=== PATIENT | male | born 1980 | race Caucasian/White ===

== ENCOUNTER → 2017-12-21 | Outpatient (CLI) | payer MEDICAID ==
--- NOTE | 2017-12-21 11:50 | XR ---
Right ankle HISTORY: Right ankle pain 3 views of the right ankle No significant soft tissue swelling. Bone mineralization, joint spaces and alignment are maintained. No fracture or dislocation. IMPRESSION: No evident bone abnormality, ankle MRI may be of benefit.
== END | disposition home or self-care (01) ==
LOC: RADXRMAIN 09:39
PROVIDERS: ATTEND Physician Assistant
DX: M25.571 Pain in right ankle and joints of right foot (principal)

== ENCOUNTER 2020-05-13 08:21 | Observation (INO) | payer MEDICAID, OTHER ==
[2020-05-13] MEDS ORDERED: SODIUM CHLORIDE 0.9% 500 ML 500 ML IV STA (08:37)
[2020-05-13] MEDS ORDERED: SODIUM CHLORIDE 0.9% 1,000 ML IV STA (08:37)
[2020-05-13] MEDS ORDERED: KETOROLAC 15 MG/ML 1 ML VIAL IVP STA (08:37)
--- NOTE | 2020-05-13 08:42 | ED ---
Abdominal Pain HPI - General Chief Complaint: Abdominal Pain Stated Complaint: Abd pain Time Seen by Provider: 05/13/20 08:27 Source: patient, RN notes reviewed Mode of arrival: ambulatory Limitations: no limitations - History of Present Illness Initial Comments: This is a 39-year-old male with a benign past medical history positive family history gallbladder disease who states he had the onset yesterday of lower abdominal pain which gets worse with movements and bumps in the road when he drives his car. It was this morning initially 9/10 now it's 6/10 severity he had nausea vomiting times to no diarrhea no constipation. He's had hot and cold flashes. He states is more localized in the right lower quadrant area. No other complaints modifying factors no prior surgeries. MD Complaint: abdominal pain - Related Data Home Medications Medication Instructions Recorded Confirmed No Known Home Medications 05/13/20 05/13/20 Allergies Allergy/AdvReac Type Severity Reaction Status Date / Time No Known Allergies Allergy Verified 05/13/20 09:19 Review of Systems ROS Statement: Those systems with pertinent positive or pertinent negative responses have been documented in the HPI. ROS Other: All systems not noted in ROS Statement are negative. Past Medical History Past Medical History: No Reported History History of Any Multi-Drug Resistant Organisms: None Reported Past Surgical History: No Surgical Hx Reported Past Psychological History: No Psychological Hx Reported Smoking Status: Never smoker Past Alcohol Use History: None Reported Past Drug Use History: None Reported General Exam - General Exam Comments Initial Comments: This is a well-developed well-nourished awake alert oriented 3 male Limitations: no limitations General appearance: alert, in no apparent distress Head exam: Present: atraumatic, normocephalic, normal inspection Eye exam: Present: normal appearance, PERRL, EOMI. Absent: scleral icterus, conjunctival injection, periorbital swelling ENT exam: Present: normal exam, mucous membranes moist Neck exam: Present: normal inspection. Absent: tenderness, meningismus, lymphadenopathy Respiratory exam: Present: normal lung sounds bilaterally. Absent: respiratory distress, wheezes, rales, rhonchi, stridor Cardiovascular Exam: Present: regular rate, normal rhythm, normal heart sounds. Absent: systolic murmur, diastolic murmur, rubs, gallop, clicks GI/Abdominal exam: Present: soft, tenderness (Is palpation over McBurney's point), normal bowel sounds. Absent: distended, guarding, rebound, rigid Rectal exam: Present: deferred Extremities exam: Present: normal inspection, full ROM, normal capillary refill. Absent: tenderness, pedal edema, joint swelling, calf tenderness Back exam: Present: normal inspection Neurological exam: Present: alert, oriented X3, CN II-XII intact Psychiatric exam: Present: normal affect, normal mood Skin exam: Present: warm, dry, intact, normal color. Absent: rash Course Vital Signs 05/13/20 08:24 Temperature 97.8 F Pulse Rate 93 Respiratory 16 Rate Blood Pressure 151/84 O2 Sat by Pulse 99 Oximetry Medical Decision Making - Medical Decision Making I did discuss findings with the patient and with Dr. Joseph who is nondistressed surgical call patient will be admitted place an IV antibiotics and surgery to be done this afternoon. - Lab Data Result diagrams: 05/13/20 08:43 05/13/20 08:43 Lab Results 05/13/20 05/13/20 05/13/20 Range/Units 08:43 08:43 08:43 WBC 14.8 H (3.8-10.6) k/uL RBC 5.14 (4.30-5.90) m/uL Hgb 14.9 (13.0-17.5) gm/dL Hct 45.3 (39.0-53.0) % MCV 88.1 (80.0-100.0) fL MCH 28.9 (25.0-35.0) pg MCHC 32.8 (31.0-37.0) g/dL RDW 13.4 (11.5-15.5) % Plt Count 228 (150-450) k/uL MPV 9.0 Neutrophils % 85 % Lymphocytes % 10 % Monocytes % 3 % Eosinophils % 1 % Basophils % 0 % Neutrophils # 12.6 H (1.3-7.7) k/uL Lymphocytes # 1.5 (1.0-4.8) k/uL Monocytes # 0.4 (0-1.0) k/uL Eosinophils # 0.2 (0-0.7) k/uL Basophils # 0.0 (0-0.2) k/uL Sodium 138 (137-145) mmol/L Potassium 4.3 (3.5-5.1) mmol/L Chloride 105 (98-107) mmol/L Carbon Dioxide 25 (22-30) mmol/L Anion Gap 8 mmol/L BUN 11 (9-20) mg/dL Creatinine 0.93 (0.66-1.25) mg/dL Est GFR (CKD-EPI)AfAm >90 (>60 ml/min/1.73 sqM) Est GFR (CKD-EPI)NonAf >90 (>60 ml/min/1.73 sqM) Glucose 140 H (74-99) mg/dL Calcium 9.6 (8.4-10.2) mg/dL Total Bilirubin 1.3 (0.2-1.3) mg/dL AST 36 (17-59) U/L ALT 38 (4-49) U/L Alkaline Phosphatase 72 (38-126) U/L Creatine Kinase 112 (55-170) U/L Total Protein 8.1 (6.3-8.2) g/dL Albumin 4.6 (3.5-5.0) g/dL Amylase 57 (30-110) U/L Lipase 181 (23-300) U/L Urine Color Yellow Urine Appearance Clear (Clear) Urine pH 8.0 (5.0-8.0) Ur Specific [place] 1.024 (1.001-1.035) Urine Protein Trace H (Negative) Urine Glucose (UA) Negative (Negative) Urine Ketones Negative (Negative) Urine Blood Negative (Negative) Urine Nitrite Negative (Negative) Urine Bilirubin Negative (Negative) Urine Urobilinogen <2.0 (<2.0) mg/dL Ur Leukocyte Esterase Trace H (Negative) Urine RBC <1 (0-5) /hpf Urine WBC 3 (0-5) /hpf Ur Squamous Epith Cells <1 (0-4) /hpf Urine Mucus Rare H (None) /hpf - Radiology Data Radiology results: report reviewed (Imaging reviewed evidence of acute appendicitis. Please see complete report), image reviewed Disposition Clinical Impression: Acute appendicitis, Abdominal pain Disposition: [facility] Condition: Fair Referrals: None,Stated [Primary Care Provider] - 1-2 days
[2020-05-13 09:00] LABS: Basophils % (A) 0 %; Eosinophils # (A) 0.2 k/uL (0-0.7); Eosinophils % (A) 1 %; HCT 45.3 % (39.0-53.0); HGB 14.9 gm/dL (13.0-17.5); Lymphocytes # (A) 1.5 k/uL (1.0-4.8); Lymphocytes % (A) 10 %; MCH 28.9 pg (25.0-35.0); MCHC 32.8 g/dL (31.0-37.0); MCV 88.1 fL (80.0-100.0); Monocytes # (A) 0.4 k/uL (0-1.0); Monocytes % (A) 3 %; Neutrophils # (A) 12.6 k/uL (1.3-7.7); Neutrophils % (A) 85 %; Platelet Count 228 k/uL (150-450); RBC 5.14 m/uL (4.30-5.90); RDW 13.4 % (11.5-15.5); WBC 14.8 k/uL (3.8-10.6)
[2020-05-13 09:05] LABS: Appearance,Urine Clear (Clear); Bilirubin,Urine Negative (Negative); Blood,Urine Negative (Negative); Color,Urine Yellow; Glucose,Urine (UA) Negative (Negative); Ketones,Urine Negative (Negative); Leukocyte Esterase,Urine Trace (Negative); Mucus,Urine Rare /hpf; Nitrite,Urine Negative (Negative); Protein,Urine Trace (Negative); RBC,Urine <1 /hpf (0-5); Specific Gravity,Urine 1.024 (1.001-1.035); Squamous Epithelial Cell,Urine <1 /hpf (0-4); Urobilinogen,Urine <2.0 mg/dL (<2.0); WBC,Urine 3 /hpf (0-5)
[2020-05-13 09:35] LABS: ALT 38 U/L (4-49); AST 36 U/L (17-59); African American GFR (CKD) >90 (>60 ml/min/1.73 sqM); Albumin 4.6 g/dL (3.5-5.0); Alkaline Phosphatase 72 U/L (38-126); Amylase 57 U/L (30-110); Anion Gap 8 mmol/L; Blood Urea Nitrogen 11 mg/dL (9-20); Calcium 9.6 mg/dL (8.4-10.2); Carbon Dioxide 25 mmol/L (22-30); Chloride 105 mmol/L (98-107); Creatine Kinase 112 U/L (55-170); Glucose 140 mg/dL (74-99); Lipase 181 U/L (23-300); Non-African American GFR(CKD) >90 (>60 ml/min/1.73 sqM); Potassium 4.3 mmol/L (3.5-5.1); Sodium 138 mmol/L (137-145); Total Bilirubin 1.3 mg/dL (0.2-1.3); Total Protein 8.1 g/dL (6.3-8.2)
--- NOTE | 2020-05-13 10:06 | CT ---
EXAMINATION TYPE: CT abdomen pelvis wo con DATE OF EXAM: 05/13/2020 COMPARISON: None HISTORY: 39-year-old male abdominal pain with nausea and vomiting CT DLP: 1559.4 mGycm. Automated exposure control for dose reduction was used. TECHNIQUE: Contiguous axial scanning of the abdomen and pelvis without IV contrast. Coronal and sagit filipe reconstructions performed. FINDINGS: Heart normal size without pericardial effusion. Motion artifact at the lung bases. Small hiatal hernia. Liver enlarged at 19.8 cm with low attenuation. Some fatty sparing along the gallbladder fossa. Gallbladder, adrenal glands, kidneys, and pancreas show no gross abnormal body by noncontrast CT. Spleen enlarged at 15.1 cm. No dilated small bowel, free fluid, free air. No mesenteric or retroperitoneal lymphadenopathy. Thickened and fluid distended appendix with tiny 6 mm appendicolith and mild periappendiceal fat stra nding. Mild stool within the right side of the abdomen. Redundant sigmoid colon. No other pericolonic inflam matory change. Bladder is partially distended. Small pelvic phlebolith. No abnormal fluid collection in the pelvis o r pelvic lymphadenopathy. Bones: Mild degenerative spurring of both hips. Mild facet arthropathy lower lumbar spine. IMPRESSION: 1. Exam positive for acute appendicitis with mild inflammation at this time. No abscess or free air. 2. Hepatic steatosis and hepatosplenomegaly (liver 19.8 cm and spleen 15.1 cm). 3. Small hiatal hernia.
[2020-05-13] MEDS ORDERED: PIPERACILLIN-TAZOBACTAM 3.375 GM in SODIUM CHLORIDE 0.9% 100 ML IVPB STA (10:42)
[2020-05-13] MEDS ORDERED: NALOXONE 0.4 MG/ML 1 ML VIAL IV PRN (10:43)
[2020-05-13] MEDS ORDERED: SODIUM CHLORIDE 0.9% 1,000 ML IV ONE (12:25)
[2020-05-13] MEDS ORDERED: ONDANSETRON 4 MG/2 ML VIAL ONE (12:45)
[2020-05-13] MEDS ORDERED: ceFAZolin 3 GM in SODIUM CHLORIDE 0.9% 100 ML IVPB ONE (12:52)
[2020-05-13] MEDS ORDERED: HEPARIN SODIUM,PORCINE 5,000 UNIT/ML 1 ML VIAL ONE (12:54)
--- NOTE | 2020-05-13 12:59 | P.GSHP ---
History of Present Illness H&P Date: 05/13/20 Chief Complaint: Acute appendicitis 39-year-old male began experiencing mid abdominal pain yesterday evening. This is associated with nausea and anorexia. This morning his pain was localized to the right lower quadrant. Increasing in severity. Came to the ER for evaluatio n. White blood cell count elevated at 14. CAT scan shows acute appendicitis with appendicolith. No history of similar events. - Review of Systems Comment: The patient denies any acute changes in vision or hearing, no dysphagia or odynophagia, no chest pain or shortness of breath, no dysuria or hematuria, no headache, no runny nose, no rectal bleeding or melena, no unexplained weight loss Past Medical History Past Medical History: No Reported History History of Any Multi-Drug Resistant Organisms: None Reported Past Surgical History: No Surgical Hx Reported Past Psychological History: No Psychological Hx Reported Smoking Status: Never smoker Past Alcohol Use History: None Reported Past Drug Use History: None Reported Medications and Allergies Home Medications Medication Instructions Recorded Confirmed Type No Known Home Medications 05/13/20 05/13/20 History Allergies Allergy/AdvReac Type Severity Reaction Status Date / Time No Known Allergies Allergy Verified 05/13/20 09:19 Surgical - Exam Vital Signs Temp Pulse Resp BP Pulse Ox 97.8 F 93 16 151/84 99 05/13/20 08:24 05/13/20 08:24 05/13/20 08:24 05/13/20 08:24 05/13/20 08:24 Physical exam: General: Well-developed, well-nourished HEENT: Normocephalic, sclerae nonicteric Abdomen: Right lower quadrant tenderness, nondistended Extremities: No edema Neuro: Alert and oriented Results - Labs 05/13/20 08:43 05/13/20 08:43 Abnormal Lab Results - Last 24 Hours (Table) 05/13/20 05/13/20 05/13/20 Range/Units 08:43 08:43 08:43 WBC 14.8 H (3.8-10.6) k/uL Neutrophils # 12.6 H (1.3-7.7) k/uL Glucose 140 H (74-99) mg/dL Urine Protein Trace H (Negative) Ur Leukocyte Esterase Trace H (Negative) Urine Mucus Rare H (None) /hpf Diabetes panel 05/13/20 Range/Units 08:43 Sodium 138 (137-145) mmol/L Potassium 4.3 (3.5-5.1) mmol/L Chloride 105 (98-107) mmol/L Carbon Dioxide 25 (22-30) mmol/L BUN 11 (9-20) mg/dL Creatinine 0.93 (0.66-1.25) mg/dL Glucose 140 H (74-99) mg/dL Calcium 9.6 (8.4-10.2) mg/dL AST 36 (17-59) U/L ALT 38 (4-49) U/L Alkaline Phosphatase 72 (38-126) U/L Total Protein 8.1 (6.3-8.2) g/dL Albumin 4.6 (3.5-5.0) g/dL Calcium panel 05/13/20 Range/Units 08:43 Calcium 9.6 (8.4-10.2) mg/dL Albumin 4.6 (3.5-5.0) g/dL Pituitary panel 05/13/20 Range/Units 08:43 Sodium 138 (137-145) mmol/L Potassium 4.3 (3.5-5.1) mmol/L Chloride 105 (98-107) mmol/L Carbon Dioxide 25 (22-30) mmol/L BUN 11 (9-20) mg/dL Creatinine 0.93 (0.66-1.25) mg/dL Glucose 140 H (74-99) mg/dL Calcium 9.6 (8.4-10.2) mg/dL Adrenal panel 05/13/20 Range/Units 08:43 Sodium 138 (137-145) mmol/L Potassium 4.3 (3.5-5.1) mmol/L Chloride 105 (98-107) mmol/L Carbon Dioxide 25 (22-30) mmol/L BUN 11 (9-20) mg/dL Creatinine 0.93 (0.66-1.25) mg/dL Glucose 140 H (74-99) mg/dL Calcium 9.6 (8.4-10.2) mg/dL Total Bilirubin 1.3 (0.2-1.3) mg/dL AST 36 (17-59) U/L ALT 38 (4-49) U/L Alkaline Phosphatase 72 (38-126) U/L Total Protein 8.1 (6.3-8.2) g/dL Albumin 4.6 (3.5-5.0) g/dL Assessment and Plan (1) Acute appendicitis Narrative/Plan: 39-year-old male with acute appendicitis. Will proceed with laparoscopic, possible appendectomy. Risks of bleeding, infection, abscess, conversion to an open procedure, hernia, bladder bowel and ureteral injury, anesthesia complications reviewed. He understands and wishes to proceed. Current Visit: Yes Status: Acute Code(s): K35.80 - UNSPECIFIED ACUTE APPENDICITIS SNOMED Code(s): 56013353
[2020-05-13] MEDS ORDERED: DEXAMETHASONE SOD PHOSPHATE 4 MG/ML 1 ML VIAL IV ONE (13:07)
[2020-05-13] MEDS ORDERED: SCOPOLAMINE 1.5MG/72HR PATCH TRANSDERM ONE (13:08)
[2020-05-13] MEDS ORDERED: GLYCOPYRROLATE 0.2 MG/ML 2 ML VIAL ONE (14:05)
[2020-05-13] MEDS ORDERED: NEOSTIGMINE 1 MG/ML 10 ML VIAL ONE (14:05)
[2020-05-13] MEDS ORDERED: PROPOFOL 10 MG/ML 20 ML VIAL IV ONE (14:05)
[2020-05-13] MEDS ORDERED: HYDROmorphone (PF) 1 MG/ML ONE (14:05)
[2020-05-13] MEDS ORDERED: MIDAZOLAM 2 MG/2 ML VIAL ONE (14:05)
[2020-05-13] MEDS ORDERED: LIDOCAINE 1% INJ 10MG/ML (20 ML MDV) ONE (14:05)
[2020-05-13] MEDS ORDERED: SUCCINYLCHOLINE CHLORIDE VIAL 200 MG/10 ML VIAL IV ONE (14:05)
[2020-05-13] MEDS ORDERED: fentaNYL (PF) 50 MCG/ML 2 ML AMP ONE (14:05)
[2020-05-13] MEDS ORDERED: ROCURONIUM 10 MG/ML (10 ML VIAL) IV ONE (14:05)
[2020-05-13] MEDS ORDERED: LACTATED RINGERS 1,000 ML IV ONE ×2 (14:15→15:42)
[2020-05-13] MEDS ORDERED: BUPIVACAINE (PF) 0.25% 30 ML VIAL SQ ONE (14:27)
[2020-05-13] MEDS ORDERED: HYDROmorphone 0.5 MG/0.5 ML SYRINGE IVP PRN (15:00)
[2020-05-13] MEDS ORDERED: ONDANSETRON 4 MG/2 ML VIAL IVP PRN (15:00)
[2020-05-13] MEDS ORDERED: HYDROcodone/APAP 5-325MG 1 EACH TAB PO PRN (15:00)
--- NOTE | 2020-05-13 15:07 | P.OP ---
Date of Procedure: 05/13/20 Procedure(s) Performed: PREOPERATIVE DIAGNOSIS: Acute appendicitis POSTOPERATIVE DIAGNOSIS: Same PROCEDURE: Laparoscopic appendectomy SURGEON: Jake EBL: Minimal ANESTHESIA: General COMPLICATIONS: None OPERATIVE PROCEDURE: The patient was brought and placed on the operating table in the supine position. The patient was placed under general anesthesia. The abdomen was prepped and draped in the usual sterile fashion. A small vertical infraumbilical incision was made. The fascia was retracted anteriorly with Dulzura forceps. The Veress needle was advanced into the peritoneal cavity. The saline drop test was normal. Insufflation took place to 15 mmHg. A 5 mm trocar was then placed. An additional 5 mm suprapubic trocar was placed under direct visualization as well as a 12 mm left lower quadrant trocar under direct visualization. The appendix was inspected. It was acutely inflamed. The mesoa ppendix was dissected. The base of the appendix was divided using a linear 45 mm intestinal stapler. The mesentery itself was divided using the LigaSure device. The area was then irrigated. No further purulence or bleeding was seen. The appendix was brought out of the peritoneal cavity through the left lower quadrant trocar site and Endo Catch bag. The fascia at the 12 mm site was closed using a [id number] 0 Vicryl stitch. The skin at all 3 sites was closed using 4-0 Monocryl sutures. Skin glue was then applied. DISPOSITION: Stable to recovery room
[2020-05-13] MEDS: SODIUM CHLORIDE 0.9% 1,000 ML IV SCH ×2 (18:03→18:20)
[2020-05-13] MEDS: HEPARIN SODIUM,PORCINE 5,000 UNIT/ML 1 ML VIAL SQ SCH (18:04)
[2020-05-14] MEDS: HEPARIN SODIUM,PORCINE 5,000 UNIT/ML 1 ML VIAL SQ SCH ×2 (00:17→08:07)
[2020-05-14 02:19] VITALS: BP 137/76; PULSE 96; TEMP 98.8
[2020-05-14] MEDS: SODIUM CHLORIDE 0.9% 1,000 ML IV SCH (09:07)
[2020-05-14 09:16] LABS: Basophils % (A) 0 %; Eosinophils # (A) 0.1 k/uL (0-0.7); Eosinophils % (A) 1 %; HCT 41.4 % (39.0-53.0); HGB 13.1 gm/dL (13.0-17.5); Lymphocytes # (A) 2.4 k/uL (1.0-4.8); Lymphocytes % (A) 23 %; MCH 28.8 pg (25.0-35.0); MCHC 31.7 g/dL (31.0-37.0); MCV 90.7 fL (80.0-100.0); Mean Platelet Volume 9.3; Monocytes # (A) 0.5 k/uL (0-1.0); Monocytes % (A) 4 %; Neutrophils # (A) 7.7 k/uL (1.3-7.7); Neutrophils % (A) 72 %; Platelet Count 200 k/uL (150-450); RBC 4.57 m/uL (4.30-5.90); RDW 13.6 % (11.5-15.5); WBC 10.7 k/uL (3.8-10.6)
[2020-05-14 09:20] VITALS: RESP 17
--- NOTE | 2020-05-14 09:55 | P.DS ---
Providers Date of admission: 05/13/20 10:43 Expected date of discharge: 05/14/20 Attending physician: Rashi Joseph Primary care physician: Stated None Hospital Course: Discharge diagnosis 1. Acute appendicitis status post laparoscopic appendectomy Hospital course This is a 39-year-old male who presented with right lower quadrant abdominal pain. He initially had mid abdominal pain with nausea and anorexia. His pain continued to increase. White count elevated at 14. Computed tomography scan showed evidence of an acute appendicitis with appendicolith. Patient is status post laparoscopic appendectomy. Patient has tolerated surgery well. He is tolerating diet. His pain is controlled. He is ambulating without difficulty. He is afebrile. Patient is stable for discharge. Please refer to chart for any further details. Physician Business Services Intern note has been reviewed by physician. Signing provider agrees with the documented findings, assessment, and plan of care. Patient Condition at Discharge: Stable Plan - Discharge Summary Discharge Rx Participant: Yes New Discharge Prescriptions: New oxyCODONE HCL [OxyIR] 5 mg PO Q6H PRN 3 Days #6 tab PRN Reason: Breakthrough Pain Discharge Medication List oxyCODONE HCL [OxyIR] 5 mg PO Q6H PRN 3 Days #6 tab 05/13/20 [Rx] Follow up Appointment(s)/Referral(s): Rashi Joseph MD [Medical Doctor] - 1 Week None,Stated [Primary Care Provider] - 1-2 days Patient Instructions/Handouts: *Surgery [facility] - (Anesthesia) Discharge Instructions Outpatient Surgery, Laparoscopic Appendectomy (DC) Activity/Diet/Wound Care/Special Instructions: No driving while taking OxyIR No lifting over 10 pounds You may shower. No soaking or tub baths for 2 weeks Very light activity until you are reevaluated at your follow up appointment with your surgeon Diet Regular Discharge Disposition: HOME SELF-CARE
== END 2020-05-14 11:15 | disposition home or self-care (01) ==
LOC: EC 08:21 → 1SOBS 10:43 → 5NMEDONC 16:12
PROVIDERS: ADMIT Surgery; ATTEND Surgery
DX: K35.80 Unspecified acute appendicitis (principal); Z98.890 Other specified postprocedural states; Z83.79 Family history of other diseases of the digestive system
CPT/HCPCS: 99285; 36415; 88304; 80053; 82150; 82550; 83690; 85025 ×2; 81001; 74176; 44970; G0378 ×3; J2543; J2250; J0330; J1644 ×2; J1100; J2710; J0690; J2405; J2001; J3010; J1170; J1885; J2704